=== PATIENT | female | born 1960 | race Caucasian/White ===

== ENCOUNTER 2016-08-02 06:51 | Emergency (ER) | payer OTHER ==
[~2016-08-02] VITALS: Ht 167.6 cm; Wt 110.0 kg
[~2016-08-02 06:51] MED LIST: ATEN1TAB75 PO; CELE20TA PO; HYDR12.56 PO; IBUP600T26 PO; MACR100C PO; MOBI15TA PO; PRIL40CA PO
[2016-08-02 06:54] VITALS: BP 177/84; PULSE 83; RESP 20; TEMP 97.8; O2SAT 98
--- NOTE | 2016-08-02 07:22 | PD ---
HPI Chief Complaint: Cold / Flu Symptoms Time Seen by Provider: 07:22 Travel History International Travel<30 days: No Contact w/Intl Traveler<30days: No Traveled to known affect area: No History of Present Illness HPI 55-year-old female, with history of COPD, presents to the emergency Department with complaint of cough and nasal congestion that started yesterday with onset of COPD exacerbation this morning. Reports wheezing, chest tightness, shortness of breath. 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 She says when she gets bronchitis is "hits her like a brick." Denies fever, chills, nausea, vomiting. Denies chest pain, abdominal pain. Has not taken any medications or treatments to alleviate her symptoms. So she doesn't have an inhaler. Allergies to Bactrim, contrast media, Keflex, Levaquin, sulfa. History of COPD and hypertension. Dr. Mayer is primary care provider. No other modifying factors or associated signs and symptoms. PFSH Past Medical History Hx Anticoagulant Therapy: No Asthma: Yes Anxiety: Yes Depression: Yes Heart Rhythm Problems: No Cancer: Yes (CERVICAL DYSPLASIA) Cardiac Catheterization: No Cardiovascular Problems: Yes (HTN) High Cholesterol: Yes Chemotherapy: No Congestive Heart Failure: No COPD: Yes Diabetes: No Diminished Hearing: No Deep Vein Thrombosis: Yes Gastrointestinal Disorders: Yes (HX OF GASTRITIS, ESOPHAGITIS) GERD: Yes Genitourinary: No Hiatal Hernia: Yes Hypertension: Yes Immune Disorder: No Kidney Stones: Yes Musculoskeletal: No Neurologic: No Psychiatric: Yes (panic attacks) Reproductive: No Respiratory: Yes (ASTHMA COPD) Integumentary: No Radiation Therapy: No Sleep Apnea: Yes ?: Not Menopausal: Yes Past Surgical History Abdominal Surgery: Yes (cholecystectomy) Cholecystectomy: Yes Coronary Artery Bypass Graft: No Gynecologic Surgery: Yes (partial hysterectomy) Hysterectomy: Yes Oral Surgery: Yes Tonsillectomy: Yes Other Surgery: Yes Social History Alcohol Use: No Tobacco Use: Yes (1 PPD) Substance Use: Yes (marijuana ) Allergies-Medications (Allergen,Severity, Reaction): Coded Allergies: Bactrim (Verified Allergy, Severe, RASH, 08/02/16) Keflex (Verified Allergy, Severe, TONGUE SWELLS/RASH, 08/02/16) Levaquin (Verified Allergy, Severe, RASH, 08/02/16) Sulfa (Verified Allergy, Severe, RASH, 08/02/16) Contrast Media (Verified Adverse Reaction, Severe, UNCONTROLLABLE SNEEZING , 08/02/16) Reported Meds & Prescriptions Reported Meds & Active Scripts Active Tessalon Perles (Benzonatate) 100 Mg Cap 100 Mg PO TID PRN Nasonex Nasal Gem (Mometasone Furoate) 50 Mcg/Act Naspr 2 Gem EACH NARE DAILY PRN Deltasone (Prednisone) 20 Mg Tab 40 Mg PO DAILY 4 Days start 08/03/2016 Proair Hfa 8.5 GM Inh (Albuterol Sulfate) 90 Mcg/Act Aer 2 Puff INH Q4-6H PRN 108 mcg/actuation Reported Mobic (Meloxicam) 15 Mg Tab 15 Mg PO DAILY Tenormin (Atenolol) 100 Mg Tab 100 Mg PO DAILY Celexa (Citalopram Hydrobromide) 20 Mg Tab 40 Mg PO DAILY Prilosec 40 mg cap (Omeprazole) 40 Mg Cap 20 Mg PO DAILY Review of Systems Except as stated in HPI: all other systems reviewed are Neg Physical Exam Narrative GENERAL: Well-nourished, well-developed female patient, in no acute distress; afebrile, nontoxic-appearing SKIN: Warm and dry. HEAD: Atraumatic. Normocephalic. EYES: Pupils equal and round. No scleral icterus. No injection or drainage. ENT: Mucosa pink and moist. No erythema or exudates. No uvular edema. No uvular , palatal, or tonsillar deviation. Airway patent. Nares without nasal blood, purulent drainage or septal hematoma. EARS: Bilateral pinnae and external canals appear within normal limits. Bilateral tympanic membranes without erythema, dullness or perforation. NECK: Trachea midline. No lymphadenopathy. CARDIOVASCULAR: Regular rate and rhythm. No murmur appreciated. RESPIRATORY: No accessory muscle use. Lungs with diffuse Wheezing throughout to auscultation. Breath sounds equal bilaterally. No retractions or tachypnea. Audible wheezing noted. GASTROINTESTINAL: Abdomen soft, non-tender, nondistended. Hepatic and splenic margins not palpable. Bowel sounds are active 4 quadrants. MUSCULOSKELETAL: No obvious deformities. No clubbing. No cyanosis. No edema. NEUROLOGICAL: Awake and alert. Oriented 3. No obvious cranial nerve deficits. Motor grossly within normal limits. Normal speech. Moves all extremities. 5/5 strength to all extremities. PSYCHIATRIC: Appropriate mood and affect; insight and judgment normal. Data Data Last Documented VS Vital Signs Date Time Temp Pulse Resp B/P Pulse Ox O2 Delivery O2 Flow Rate FiO2 08/02/16 06:54 97.8 83 20 177/84 98 Nasal Cannula Orders Prednisone (Deltasone) (08/02/16 07:30) Albuterol Neb (Albuterol Neb) (08/02/16 07:30) [facility] Medical Decision Making Medical Screen Exam Complete: Yes Emergency Medical Condition: Yes Medical Record Reviewed: Yes Differential Diagnosis COPD exacerbation, viral illness, bronchitis Narrative Course 55-year-old female with COPD with COPD exacerbation. She has also had cough and nasal congestion since yesterday. She was exposed to cleaning chemicals this morning at work. She has diffuse wheezing throughout on auscultation of the lungs. She does have audible wheezing noted. She is in no acute distress and without retractions or tachypnea. Oxygen saturation 98% on room air. Shortness of breath noted with talking full sentences. Deltasone and albuterol nebulizer ordered. 0744: On reevaluation lung sounds are clear and equal throughout. Patient reports improvement in symptoms. She denies chest tightness or shortness of breath. She is able to speak full sentences without shortness of breath. No audible wheezing noted. Pro-air inhaler, Deltasone, Tessalon Perles, Nasonex nasal spray prescribed for home. Patient is requesting a prescription for azithromycin. Azithromycin prescribed for home. Discussed viral illness and symptom management. Patient verbalizes understanding and agreement with treatment plan. Patient is medically cleared and stable for discharge. Discussed reasons to return to the emergency department. Instructed patient to follow up with primary care provider. Patient agrees with treatment plan. The patients vital signs are stable and the patient is stable for outpatient follow- up and treatment. Patient discharged home, stable and in no acute distress. Diagnosis Primary Impression: COPD exacerbation Additional Impression: Viral illness Referrals: Primary Care Physician Patient Instructions: COPD (Chronic Obstructive Pulmonary Disease) (ED), Cold Symptoms (ED), General Instructions, Safe Use of Cough and Cold Medicines (ED) Departure Forms: Tests/Procedures, Work Release Enter return to work date: Aug 05, 2016 Additional Instructions: Use Albuterol inhaler as prescribed Take oral steroids as prescribed and complete full course Use Tessalon Perles as prescribed to decrease coughing spasms [id number] decongestants or antihistamines as directed and as needed for symptom management Your cough can last 4-6 weeks Drink plenty of fluids to prevent dehydration Use hot air humidifier to decrease cough exacerbation Turn off ceiling fans and sleep with head of bed elevated Avoid triggers such as second hand smoke, dust, known allergens Follow-up with your primary care provider Return to the emergency department immediately with worsening of symptoms Med/Other Pt SpecificInfo: Prescription(s) given Scripts Azithromycin 500 Mg [id number] Mg PO DAILY #5 TAB Ref 0 Prov:Violeta Trevino 08/02/16 Benzonatate (Tessalon Perles)100 Mg [id number] Mg PO TID PRN (COUGH) #20 CAP Ref 0 Prov:Violeta Trevino 08/02/16 Mometasone Nasal Gem (Nasonex Nasal Gem)50 Mcg/Act Naspr2 Gem EACH NARE DAILY PRN (NASAL CONGESTION) #1 BOTTLE Ref 0 Prov:Violeta Trevino 08/02/16 Prednisone (Deltasone)20 Mg Tab40 Mg PO DAILY 4 Days Ref 0 start 08/03/2016 Prov:Violeta Trevino 08/02/16 Albuterol 8.5 GM Inh (Proair Hfa 8.5 GM Inh)90 Mcg/Act Aer2 Puff INH Q4-6H PRN ( SOB/WHEEZING) #1 INHALER Ref 0 108 mcg/actuation Prov:Violeta Trevino 08/02/16 Disposition: 01 DISCHARGE HOME Condition: Stable Violeta Trevino Aug 02, 2016 07:22
[2016-08-02] MEDS ORDERED: ALBUAER3 INH (07:28)
[2016-08-02] MEDS ORDERED: PRED-503 PO (07:28)
[2016-08-02] MEDS ORDERED: MOME17I EACH NARE (07:30)
[2016-08-02] MEDS ORDERED: RESP: ALBUTEROL 2.5 MG/3 ML NEB (SCH) INH ONE (07:30)
[2016-08-02] MEDS ORDERED: BENZ100 PO (07:30)
[2016-08-02] MEDS ORDERED: predniSONE 20 MG TAB PO ONE (07:30)
[2016-08-02] MEDS ORDERED: AZIT500T2 PO (07:42)
== END 2016-08-02 08:01 | disposition home or self-care (01) ==
LOC: NEPB 06:51
DX: J44.1 Chronic obstructive pulmonary disease with (acute) exacerbation (principal); B34.9 Viral infection, unspecified; I10 Essential (primary) hypertension; E78.00 Pure hypercholesterolemia, unspecified; Z86.718 Personal history of other venous thrombosis and embolism; Z87.442 Personal history of urinary calculi; F17.210 Nicotine dependence, cigarettes, uncomplicated
CPT/HCPCS: 94664; 99283; J7512; J7613

== ENCOUNTER 2017-05-27 10:23 | Emergency (ER) | payer OTHER ==
[~2017-05-27] VITALS: Ht 167.6 cm; Wt 111.0 kg
[~2017-05-27 10:23] MED LIST changes: +ALBUAER3 INH; +AZIT500T2 PO; +BENZ100 PO; -HYDR12.56 PO; -IBUP600T26 PO; -MACR100C PO; +MOME17I EACH NARE; +PRED-503 PO
[2017-05-27 10:26] VITALS: BP 192/97; PULSE 104; RESP 18; TEMP 98.5; O2SAT 98
--- NOTE | 2017-05-27 10:55 | PD ---
HPI Chief Complaint: Pain: Acute or Chronic Time Seen by Provider: 10:40 Travel History International Travel<30 days: No Contact w/Intl Traveler<30days: No Traveled to known affect area: No History of Present Illness HPI c/o LLE swelling, redness onset yesterday, 12/27, nonrad, h/o prior dvt and lazar 's cyst. all pmhx:copd, cervical ca, pshx:partial hyst, gb PFSH Past Medical History Hx Anticoagulant Therapy: No Arthritis: Yes Asthma: Yes Anxiety: Yes Depression: Yes Heart Rhythm Problems: No Cancer: Yes (CERVICAL DYSPLASIA) Cardiac Catheterization: No Cardiovascular Problems: Yes (HTN) High Cholesterol: Yes Chemotherapy: No Congestive Heart Failure: No COPD: Yes Diabetes: No Diminished Hearing: No Deep Vein Thrombosis: Yes (hx of ) Gastrointestinal Disorders: Yes (HX OF GASTRITIS, ESOPHAGITIS) GERD: Yes Genitourinary: No Hiatal Hernia: Yes Heparin Induced Thrombocytopen: No Hypertension: Yes Immune Disorder: No Kidney Stones: Yes Musculoskeletal: No Neurologic: No Psychiatric: Yes (panic attacks) Reproductive: No Respiratory: Yes (ASTHMA COPD) Integumentary: No Radiation Therapy: No Sleep Apnea: Yes ?: Not Menopausal: Yes Past Surgical History Abdominal Surgery: Yes (cholecystectomy) Cholecystectomy: Yes Coronary Artery Bypass Graft: No Gynecologic Surgery: Yes (partial hysterectomy) Hysterectomy: Yes Oral Surgery: Yes Tonsillectomy: Yes Other Surgery: Yes Family History Family Myocardial Infarction: Yes Social History Alcohol Use: No Tobacco Use: Yes (1 PPD) Substance Use: Yes (marijuana ) Allergies-Medications (Allergen,Severity, Reaction): Coded Allergies: Sulfa (Sulfonamide Antibiotics) (Verified Allergy, Severe, RASH, 05/27/17) cephalexin (Verified Allergy, Severe, TONGUE SWELLS/RASH, 05/27/17) levofloxacin (Verified Allergy, Severe, RASH, 05/27/17) sulfamethoxazole (Verified Allergy, Severe, RASH, 05/27/17) trimethoprim (Verified Allergy, Severe, RASH, 05/27/17) diatrizoate meglumine (Verified Adverse Reaction, Severe, UNCONTROLLABLE SNEEZING, 05/27/17) gadobenic acid (Verified Adverse Reaction, Severe, UNCONTROLLABLE SNEEZING , 05/27/17) gadodiamide (Verified Adverse Reaction, Severe, UNCONTROLLABLE SNEEZING, ) gadoteridol (Verified Adverse Reaction, Severe, UNCONTROLLABLE SNEEZING, ) iodixanol (Verified Adverse Reaction, Severe, UNCONTROLLABLE SNEEZING, 05/27) iohexol (Verified Adverse Reaction, Severe, UNCONTROLLABLE SNEEZING, ) Reported Meds & Prescriptions Reported Meds & Active Scripts Active Eliquis (Apixaban) 5 Mg Tab 10 Mg PO BID Azithromycin 500 Mg Tab 500 Mg PO DAILY Tessalon Perles (Benzonatate) 100 Mg Cap 100 Mg PO TID PRN Nasonex Nasal [place] (Mometasone Furoate) 50 Mcg/Act Naspr 2 [place] EACH NARE DAILY PRN Deltasone (Prednisone) 20 Mg Tab 40 Mg PO DAILY 4 Days start 08/03/2016 Proair Hfa 8.5 GM Inh (Albuterol Sulfate) 90 Mcg/Act Aer 2 Puff INH Q4-6H PRN 108 mcg/actuation Reported Mobic (Meloxicam) 15 Mg Tab 15 Mg PO DAILY Tenormin (Atenolol) 100 Mg Tab 100 Mg PO DAILY Celexa (Citalopram Hydrobromide) 20 Mg Tab 40 Mg PO DAILY Prilosec 40 mg cap (Omeprazole) 40 Mg Cap 20 Mg PO DAILY Review of Systems Except as stated in HPI: all other systems reviewed are Neg General / Constitutional: No: Fever Eyes: No: Visual changes HENT: No: Headaches Cardiovascular: No: Chest Pain or Discomfort Respiratory: No: Shortness of Breath Gastrointestinal: No: Abdominal Pain Genitourinary: No: Dysuria Musculoskeletal: Positive: Pain (LLE CIRCUM EDEMA AND PAIN) Skin: Positive Other (LLE SWELLING) Neurologic: No: Weakness Psychiatric: No: Depression Endocrine: No: Polydipsia Hematologic/Lymphatic: No: Easy Bruising Physical Exam Narrative GENERAL: SKIN: Warm and dry. HEAD: Atraumatic. Normocephalic. EYES: Pupils equal and round. No scleral icterus. No injection or drainage. ENT: No nasal bleeding or discharge. Mucous membranes pink and moist. NECK: Trachea midline. No JVD. CARDIOVASCULAR: Regular rate and rhythm. RESPIRATORY: No accessory muscle use. Clear to auscultation. Breath sounds equal bilaterally. GASTROINTESTINAL: Abdomen soft, non-tender, nondistended. Hepatic and splenic margins not palpable. MUSCULOSKELETAL: Extremities without clubbing, cyanosis, or LLE edema ( CIRCUMFERENTIAL). No obvious deformities. NEUROLOGICAL: Awake and alert. No obvious cranial nerve deficits. Motor grossly within normal limits. Five out of 5 muscle strength in the arms and legs. Normal speech. PSYCHIATRIC: Appropriate mood and affect; insight and judgment normal. Data Data Last Documented VS Vital Signs Date Time Temp Pulse Resp B/P (MAP) Pulse Ox O2 Delivery O2 Flow Rate FiO2 05/27/17 10:26 98.5 104 18 192/97 (128) 98 Orders Orders Us Leg Venous Doppler (05/27/17 10:55) Tramadol (Ultram) (05/27/17 11:00) Enoxaparin Inj (Lovenox Inj) (05/27/17 14:00) MDM Medical Decision Making Medical Screen Exam Complete: Yes Emergency Medical Condition: Yes Medical Record Reviewed: Yes Differential Diagnosis DVT V CELLULITIS V LAZAR CYST RUPTURE Narrative Course CALLED DR [facility]AMBILA [facility] RECC OUTPATIENT TREATMENT....ULTRS POS FOR DVT. 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 Patient Instructions: Deep Venous Thrombosis (ED), General Instructions Departure Forms: Tests/Procedures, Work Release Enter return to work date: May 30, 2017 Additional Instructions: CALL DR ROSE TO BE SEEN WITHIN WEEK, TELL THEM THAT YOU WERE FOUND TO HAVE A BLOOD CLOT, GIVEN LOVENOX INJECTION IN ER AND PRESCRIPTION FOR 1 WEEK OF LOADING DOSE OF ELIQUIS...YOU WILL NEED ADDITIONAL MEDICATION PRESCRIBED Scripts Apixaban (Eliquis) 5 Mg Tab 10 MG PO BID for Blood Clot Prevention, #14 TAB 0 Refills Prov: Bello Fernandez MD 05/27/17 Disposition: 01 DISCHARGE HOME Condition: Stable Bello Fernandez MD May 27, 2017 10:55
[2017-05-27] MEDS ORDERED: traMADol HCL 50 MG TAB PO ONE (11:00)
--- NOTE | 2017-05-27 12:40 | RADRPT ---
EXAM DATE/TIME: 05/27/2017 12:02 [facility] COMPARISON: US LEG LEFT VENOUS DOPPLER, January 11, 2014, 20:26. INDICATIONS : Left leg swelling. MEDICAL HISTORY : Hypercholesterolemia. Chronic obstructive pulmonary disease. Gastroesophageal reflux disease. Hype rtension. Tuberculosis. Hiatal hernia. Arthritis. Measles. Cervical dysplasia. Kidney stones. SURGICAL HISTORY : Tonsillectomy. Cholecystectomy. Hysterectomy. ENCOUNTER: Initial ACUITY: 4 - 6 days PAIN SCORE: 6/10 LOCATION: Left leg. TECHNIQUE: Venous ultrasound of the leg was performed from the inguinal ligament to the proximal calf. Real-shayy e, color Doppler and spectral tracing, compression and augmentation techniques were used. FINDINGS: Nonocclusive thrombus left popliteal vein with occlusive thrombus below the knee and calf. CONCLUSION: Positive for DVT thrombosis below the knee nonocclusive thrombus extends into the pop liteal vein. Jefry Rodriguez MD FACR on May 27, 2017 at 12:37 Board Certified Radiologist. This report was verified electronically.
[2017-05-27] MEDS ORDERED: APIX5TAB PO (13:27)
[2017-05-27] MEDS ORDERED: ENOXAPARIN SODIUM 80 MG/0.8 ML SYRINGE SQ ONE (14:00)
[2017-05-27] MEDS ORDERED: CODE30TA2 PO (14:09)
== END 2017-05-27 14:21 | disposition home or self-care (01) ==
LOC: NEPD 10:23
DX: I82.4Z2 Acute embolism and thrombosis of unspecified deep veins of left distal lower extremity (principal); J44.9 Chronic obstructive pulmonary disease, unspecified; I10 Essential (primary) hypertension; F41.9 Anxiety disorder, unspecified; F32.9 Major depressive disorder, single episode, unspecified; K21.9 Gastro-esophageal reflux disease without esophagitis; M19.90 Unspecified osteoarthritis, unspecified site; E78.00 Pure hypercholesterolemia, unspecified; G47.30 Sleep apnea, unspecified
CPT/HCPCS: 93971; 96372; 99284; J1650

== ENCOUNTER 2017-08-20 13:03 | Emergency (ER) | payer OTHER ==
[~2017-08-20] VITALS: Ht 170.2 cm; Wt 113.6 kg
[~2017-08-20 13:03] MED LIST changes: +APIX5TAB PO; +CODE30TA2 PO
[2017-08-20 13:07] VITALS: BP 188/102; PULSE 90; RESP 24; TEMP 98.3; O2SAT 96
[2017-08-20 13:25] VITALS: BP 188/103; PULSE 78; RESP 15; O2SAT 98
[2017-08-20] MEDS ORDERED: SODIUM CHLORIDE 0.9% FLUSH 10 ML FLUSH IVF PRN (13:30)
[2017-08-20] MEDS ORDERED: methylPREDNISolone SOD SUCC 125 MG/2 ML VIAL IV PUSH ONE (13:30)
--- NOTE | 2017-08-20 13:36 | PD ---
HPI Chief Complaint: Respiratory Symptoms Time Seen by Provider: 13:15 Travel History International Travel<30 days: No Contact w/Intl Traveler<30days: No Traveled to known affect area: No History of Present Illness HPI The patient was seen and examined in the presence of the nurse. This patient complains of shortness of breath. Duration is 3 days. Gradually worsening. She has history of COPD and still smokes. She is currently on Eliquis for a left leg DVT. She complains of coughing worse than her usual cough. Denies fever or chest pain. She has brought up phlegm and there is some blood in the phlegm. Symptom severity is severe. No alleviating factors. She arrives dyspneic PFS Past Medical History Hx Anticoagulant Therapy: No Arthritis: Yes Asthma: Yes Anxiety: Yes Depression: Yes Heart Rhythm Problems: No Cancer: Yes (CERVICAL DYSPLASIA) Cardiac Catheterization: No Cardiovascular Problems: Yes (HTN) High Cholesterol: Yes Chemotherapy: No Congestive Heart Failure: No COPD: Yes Diabetes: No Diminished Hearing: No Deep Vein Thrombosis: Yes (hx of ) Gastrointestinal Disorders: Yes (HX OF GASTRITIS, ESOPHAGITIS) GERD: Yes Genitourinary: No Hiatal Hernia: Yes Heparin Induced Thrombocytopen: No Hypertension: Yes Immune Disorder: No Kidney Stones: Yes Musculoskeletal: No Neurologic: No Psychiatric: Yes (panic attacks) Reproductive: No Respiratory: Yes (ASTHMA COPD) Integumentary: No Radiation Therapy: No Sleep Apnea: Yes ?: Not Menopausal: Yes Past Surgical History Abdominal Surgery: Yes (cholecystectomy) Cholecystectomy: Yes Coronary Artery Bypass Graft: No Gynecologic Surgery: Yes (partial hysterectomy) Hysterectomy: Yes Oral Surgery: Yes Tonsillectomy: Yes Other Surgery: Yes Family History Family Myocardial Infarction: Yes Social History Alcohol Use: No Tobacco Use: Yes (1 PPD) Substance Use: Yes (marijuana ) Allergies-Medications (Allergen,Severity, Reaction): Coded Allergies: Sulfa (Sulfonamide Antibiotics) (Verified Allergy, Severe, RASH, 08/20/17) cephalexin (Verified Allergy, Severe, TONGUE SWELLS/RASH, 08/20/17) levofloxacin (Verified Allergy, Severe, RASH, 08/20/17) sulfamethoxazole (Verified Allergy, Severe, RASH, 08/20/17) trimethoprim (Verified Allergy, Severe, RASH, 08/20/17) diatrizoate meglumine (Verified Adverse Reaction, Severe, UNCONTROLLABLE SNEEZING, 08/20/17) gadobenic acid (Verified Adverse Reaction, Severe, UNCONTROLLABLE SNEEZING , 08/20/17) gadodiamide (Verified Adverse Reaction, Severe, UNCONTROLLABLE SNEEZING, ) gadoteridol (Verified Adverse Reaction, Severe, UNCONTROLLABLE SNEEZING, ) iodixanol (Verified Adverse Reaction, Severe, UNCONTROLLABLE SNEEZING, 08/20) iohexol (Verified Adverse Reaction, Severe, UNCONTROLLABLE SNEEZING, ) Reported Meds & Prescriptions Reported Meds & Active Scripts Active Ventolin Hfa 18 GM Inh (Albuterol Sulfate) 90 Mcg/Act Aer 2 Puff INH Q4-6H PRN Prednisone 20 Mg Tab 40 Mg PO DAILY Take 40 mg (2 tablets) daily for 5 days Codeine-Acetaminophen 30-300 mg Tab 1 Tab PO Q4H PRN Eliquis (Apixaban) 5 Mg Tab 10 Mg PO BID Azithromycin 500 Mg Tab 500 Mg PO DAILY Tessalon Perles (Benzonatate) 100 Mg Cap 100 Mg PO TID PRN Nasonex Nasal Desha (Mometasone Furoate) 50 Mcg/Act Naspr 2 Desha EACH NARE DAILY PRN Deltasone (Prednisone) 20 Mg Tab 40 Mg PO DAILY 4 Days start 08/03/2016 Proair Hfa 8.5 GM Inh (Albuterol Sulfate) 90 Mcg/Act Aer 2 Puff INH Q4-6H PRN 108 mcg/actuation Reported Mobic (Meloxicam) 15 Mg Tab 15 Mg PO DAILY Tenormin (Atenolol) 100 Mg Tab 100 Mg PO DAILY Celexa (Citalopram Hydrobromide) 20 Mg Tab 40 Mg PO DAILY Prilosec 40 mg cap (Omeprazole) 40 Mg Cap 20 Mg PO DAILY Review of Systems General / Constitutional: No: Fever Eyes: No: Visual changes HENT: No: Headaches Cardiovascular: No: Chest Pain or Discomfort Respiratory: Positive: Cough, Shortness of Breath, Wheezing Gastrointestinal: No: Abdominal Pain Genitourinary: No: Dysuria Musculoskeletal: No: Pain Skin: No Rash Neurologic: No: Weakness Psychiatric: No: Depression Endocrine: No: Polydipsia Hematologic/Lymphatic: No: Easy Bruising Physical Exam Narrative GENERAL: Morbidly obese well-developed patient in respiratory distress. SKIN: Focused skin assessment reveals no rash and nodules. Skin is Warm and dry. HEAD: Atraumatic. Normocephalic. EYES: Pupils equal and round. No scleral icterus. No injection or drainage. ENT: No nasal bleeding or discharge. Mucous membranes pink and moist. NECK: Trachea midline. No JVD. CARDIOVASCULAR: Regular rate and rhythm. No murmur appreciated. RESPIRATORY: Positive accessory muscle use. Diffuse expiratory wheezing. No crackles. Breath sounds equal bilaterally. GASTROINTESTINAL: Abdomen soft, non-tender, nondistended. Hepatic and splenic margins not palpable. MUSCULOSKELETAL: No obvious deformities. No clubbing. No cyanosis. No edema. NEUROLOGICAL: Awake and alert. No obvious cranial nerve deficits. Motor grossly within normal limits. Normal speech. PSYCHIATRIC: Appropriate mood and affect; insight and judgment seems weak given her continued smoking with COPD and dyspnea and chronic cough Data Data Last Documented VS Vital Signs Date Time Temp Pulse Resp B/P (MAP) Pulse Ox O2 Delivery O2 Flow Rate FiO2 08/20/17 13:38 98 Nasal Cannula 2.00 08/20/17 13:25 18 08/20/17 13:25 78 188/103 (131) 08/20/17 13:07 98.3 Orders Orders Complete Blood Count With Diff (08/20/17 13:25) Basic Metabolic Panel (Bmp) (08/20/17 13:25) Influenzae A/B Antigen (08/20/17 13:25) Iv Access Insert/Monitor (08/20/17 13:25) Electrocardiogram (08/20/17 13:25) Ecg Monitoring (08/20/17 13:25) Oximetry (08/20/17 13:25) Oxygen Administration (08/20/17 13:25) Chest, Single Ap (08/20/17 13:25) Sodium Chloride 0.9% Flush (Ns Flush) (08/20/17 13:30) Methylprednisolone So Succ Inj (Solumedr (08/20/17 13:30) Albuterol-Ipratropium Neb (Duoneb Neb) (08/20/17 13:30) Albuterol-Ipratropium Neb (Duoneb Neb) (08/20/17 15:30) Labs Laboratory Tests Test 08/20/17 13:48 White Blood Count 10.3 TH/MM3 Red Blood Count 4.58 MIL/MM3 Hemoglobin 13.6 GM/DL Hematocrit 38.5 % Mean Corpuscular Volume 84.1 FL Mean Corpuscular Hemoglobin 29.6 PG Mean Corpuscular Hemoglobin Concent 35.2 % Red Cell Distribution Width 14.8 % Platelet Count 236 TH/MM3 Mean Platelet Volume 7.5 FL Neutrophils (%) (Auto) 62.2 % Lymphocytes (%) (Auto) 32.4 % Monocytes (%) (Auto) 4.2 % Eosinophils (%) (Auto) 0.9 % Basophils (%) (Auto) 0.3 % Neutrophils # (Auto) 6.4 TH/MM3 Lymphocytes # (Auto) 3.3 TH/MM3 Monocytes # (Auto) 0.4 TH/MM3 Eosinophils # (Auto) 0.1 TH/MM3 Basophils # (Auto) 0.0 TH/MM3 CBC Comment DIFF FINAL Differential Comment Blood Urea Nitrogen 13 MG/DL Creatinine 0.71 MG/DL Random Glucose 113 MG/DL Calcium Level 9.0 MG/DL Sodium Level 141 MEQ/L Potassium Level 3.9 MEQ/L Chloride Level 107 MEQ/L Carbon Dioxide Level 26.8 MEQ/L Anion Gap 7 MEQ/L Estimat Glomerular Filtration Rate 85 ML/MIN MDM Medical Decision Making Medical Screen Exam Complete: Yes Emergency Medical Condition: Yes Medical Record Reviewed: Yes Differential Diagnosis COPD exacerbation, pneumonia, pneumothorax, PE Narrative Course I have reviewed the patient's electronic medical record. Reviewed her workup June 06, 2017 where she was diagnosed with DVT 1325: Patient arrives critically ill, very dyspneic Presentation initially seems like severe COPD exacerbation She has diffuse expiratory wheezing I gave her series of 3 nebulizer treatments and IV Solu-Medrol Labs sent 1415: Patient improved after nebulizers Her chest x-ray is normal EKG shows sinus rhythm without ectopy 1510: Lab studies not particular revealing 1615: I gave her a fourth nebulizer treatment She feels improved I took her off oxygen Saturations are running 97 and 99% on room air I offered her observation in the hospital but she thinks she can do well at home and wants to go home No longer critically ill and actually reasonable to discharge her home at this point Recommend smoking cessation. I refilled her inhaler. I wrote her 5 days of prednisone. She knows what to return for Critical Care Narrative Aggregate critical care time was 40 minutes. Time to perform other separately billable procedures was not included in the critical care time. My time did not include minutes spent treating any other patients simultaneously or on activities that did not directly contribute to the patient's treatment. The services I provided to this patient were to treat and/or prevent clinically significant deterioration that could result in: Cardiopulmonary arrest, respiratory collapse, cardiac arrhythmia I provided critical care services requiring my management, as noted below: Chart data review, documentation time, medication orders and management, vital sign assessments/reviewing monitor data, ordering and reviewing lab tests, ordering and interpreting/reviewing x-rays and diagnostic studies, care of the patient and discussion of the patient with the admitting physicians. Diagnosis Primary Impression: Acute respiratory failure with hypoxia Additional Impression: COPD exacerbation Additional Instructions: The patient was advised to follow up with their physician and return if they worsen. Quit smoking Med/Other Pt SpecificInfo: Prescription(s) given Scripts Albuterol 18 GM Inh (Ventolin Hfa 18 GM Inh) 90 Mcg/Act Aer 2 PUFF INH Q4-6H Y for SHORTNESS OF BREATH, #1 INHALER 0 Refills Prov: David Merrill MD 08/20/17 Prednisone (Prednisone) 20 Mg Tab 40 MG PO DAILY, #10 TAB 0 Refills Take 40 mg (2 tablets) daily for 5 days Prov: David Merrill MD 08/20/17 Disposition: 01 DISCHARGE HOME Condition: Stable David Merrill MD Aug 20, 2017 13:36
[2017-08-20] MEDS: RESP: ALBUTEROL 2.5 MG/IPRATROPIUM 0.5 MG NEB (SCH) INH (13:42)
--- NOTE | 2017-08-20 13:56 | RADRPT ---
EXAM DATE/TIME: 08/20/2017 13:34 [facility] COMPARISON: CHEST SINGLE AP, January 21, 2016, 5:16. INDICATIONS : Short of breath, coughing up blood MEDICAL HISTORY : Chronic obstructive pulmonary disease. Hypertension Gastroesophageal reflux disease. tuberculosis , measles, hiatal hernia, blood clot in her knee SURGICAL HISTORY : Tonsillectomy. Cholecystectomy. ENCOUNTER: Initial ACUITY: 2 days PAIN SCORE: 0/10 LOCATION: Bilateral chest FINDINGS: A single view of the chest demonstrates the lungs to be symmetrically aerated without evidence of mas s, infiltrate or effusion. The cardiomediastinal contours are unremarkable. Osseous structures are intact. CONCLUSION: No acute cardiopulmonary disease. Marvin Kuhn MD on August 20, 2017 at 13:54 Board Certified Radiologist. This report was verified electronically.
[2017-08-20 14:06] LABS: AUTOMATED NEUTROPHIL # 6.4 TH/MM3 (1.8-7.7); BASOPHIL % 0.3 % (0.0-2.0); EOSINOPHIL # 0.1 TH/MM3 (0-0.4); EOSINOPHIL % 0.9 % (0.0-4.0); HEMATOCRIT 38.5 % (35.0-46.0); HEMOGLOBIN 13.6 GM/DL (11.6-15.3); LYMPH % 32.4 % (9.0-44.0); LYMPHOCYTE # 3.3 TH/MM3 (1.0-4.8); MEAN CELL VOLUME 84.1 FL (80.0-100.0); MEAN CORPUSCULAR HEMOGLOBIN 29.6 PG (27.0-34.0); MEAN CORPUSCULAR HGB CONC 35.2 % (32.0-36.0); MEAN PLATELET VOLUME 7.5 FL (7.0-11.0); MONO % 4.2 % (0.0-8.0); MONOCYTE # 0.4 TH/MM3 (0-0.9); NEUT % 62.2 % (16.0-70.0); PLATELET COUNT 236 TH/MM3 (150-450); RED BLOOD COUNT 4.58 MIL/MM3 (4.00-5.30); RED CELL DISTRIBUTION WIDTH 14.8 % (11.6-17.2); WHITE BLOOD COUNT 10.3 TH/MM3 (4.0-11.0)
[2017-08-20 14:33] LABS: BICARBONATE 26.8 MEQ/L (21.0-32.0); CREATININE 0.71 MG/DL (0.50-1.00)
[2017-08-20] MEDS ORDERED: RESP: ALBUTEROL 2.5 MG/IPRATROPIUM 0.5 MG NEB (SCH) NEB ONE (15:30)
[2017-08-20] MEDS ORDERED: VENTAER INH (15:50)
[2017-08-20] MEDS ORDERED: PRED20 PO (15:50)
--- NOTE | 2017-08-21 13:18 | EKG ---
Date Performed: 08/20/2017 Time Performed: 13:46:21 PTAGE: 56 years EKG: Sinus rhythm BORDERLINE LEFT AXIS DEVIATION MODERATE VOLTAGE CRITERIA FOR LVH, CONSIDER NORMAL VARIANT NONSPECIFI C T-WAVE ABNORMALITY BORDERLINE ECG PREVIOUS TRACING : 02/11/2016 18.25 DOCTOR: Ceasar Bowling Interpretating Date/Time 08/21/2017 13:16:46
== END 2017-08-20 17:00 | disposition home or self-care (01) ==
LOC: NEPC 13:03
DX: J96.01 Acute respiratory failure with hypoxia (principal); J44.1 Chronic obstructive pulmonary disease with (acute) exacerbation; R94.31 Abnormal electrocardiogram [ECG] [EKG]; F17.210 Nicotine dependence, cigarettes, uncomplicated; E78.00 Pure hypercholesterolemia, unspecified; F32.9 Major depressive disorder, single episode, unspecified; I10 Essential (primary) hypertension; K21.9 Gastro-esophageal reflux disease without esophagitis; F41.9 Anxiety disorder, unspecified; Z86.718 Personal history of other venous thrombosis and embolism; Z79.01 Long term (current) use of anticoagulants
CPT/HCPCS: 71045; 80048; 85025; 87804; 93005; 94640; 94664; 96374; 99291; J2930

== ENCOUNTER → 2017-09-04 | Outpatient (CLI) | payer OTHER ==
[~2017-09-04] MED LIST changes: +PRED20 PO; +VENTAER INH
--- NOTE | 2017-09-11 09:48 | RSPPFT ---
DATE OF PROCEDURE: 09/04/17 COMMENTS: Spirometry shows FVC of 2.1 at 85% of predicted, FEV1 of 1.2 at 48%, FEV1/FVC ratio is decreased. Flow is decreased at FEF 25, FEF 50, FEF 75 and FEF 25-75. There is no response after bronchodilator treatment. Lung volumes show residual volume is increased. TLC is normal. Diffusion capacity is normal. Flow volume loop indicates an obstructive pattern. Room air arterial blood gases show pH of 7.42, PCO2 of 41, PO2 of 80, BiCarb of 25 and Saturation at 91%. 6-minute walk test shows no de-saturation. IMPRESSION: 1. Moderately severe obstructive lung disease. 2. No response after bronchodilator treatment. 3. Lung volumes show hyperinflation. 4. Diffusion capacity is normal. 5. Blood gases show normal oxygenation. 6. 6-minute walk test shows no de-saturation.
== END ==
LOC: PHRSP 07:27
PROVIDERS: ATTEND Specialist
DX: J44.9 Chronic obstructive pulmonary disease, unspecified (principal)
CPT/HCPCS: 36600; 82805; 94060; 94618; 94726; 94729